=== PATIENT | male | born 1970 | race Caucasian/White ===

== ENCOUNTER 2023-02-18 16:26 | Emergency (ER) | payer OTHER, SELFPAY ==
[2023-02-18 16:27] VITALS: BP 82/56; PULSE 78; RESP 16; TEMP 36.7; O2SAT 97; BMI 22.9
--- NOTE | 2023-02-18 16:36 | ECG_ITS ---
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
[2023-02-18 16:48] VITALS: BP 93/56; PULSE 80; RESP 20; O2SAT 97
[2023-02-18 16:51] LABS: Basophils Absolute Auto 0.1 10^3/uL (0.0-0.1); Basophils Percent Auto 0.4 % (0.2-2.0); Eosinophils Absolute Auto 0.2 10^3/uL (0.0-0.7); Eosinophils Percent Auto 1.3 % (0.9-7.0); Hematocrit 33.2 % (42.0-54.0); Hemoglobin 10.7 g/dL (14.0-18.0); Immature Granulocytes Abs Auto 0.05 10^3/uL (0.00-0.03); Immature Granulocytes Pct Auto 0.4 % (0.0-0.5); Lymphocytes Absolute Auto 2.6 10^3/uL (1.2-3.8); Lymphocytes Percent Auto 20.7 % (20.5-60.0); Mean Corpuscular HGB Conc 32.2 g/dL (29.9-35.2); Mean Corpuscular Volume 86.9 fL (80.0-94.0); Mean Platelet Volume 9.6 fL (9.5-13.5); Monocytes Absolute Auto 0.9 10^3/uL (0.3-0.8); Monocytes Percent Auto 6.9 % (1.7-12.0); Neutrophils Absolute Auto 8.7 10^3/uL (1.4-6.5); Neutrophils Percent Auto 70.3 % (43.0-75.0); Platelet Count 409 10^3/uL (150-450); Red Blood Count 3.82 10^6/uL (4.70-6.10); Red Cell Distribution Width 13.7 % (11.0-15.0); White Blood Count 12.4 10^3/uL (4.0-11.0)
[2023-02-18] MEDS: KETOROLAC TROMETHAMINE 30 MG/ML VIAL IVP (16:57)
[2023-02-18] MEDS: 0.9 % SODIUM CHLORIDE 1,000 ML 1000 ML IV (16:58)
[2023-02-18 17:07] LABS: Alanine Aminotransferase 18 U/L (16-63); Albumin Globulin Ratio 0.8; Albumin Level 3.4 g/dL (3.4-5.0); Alkaline Phosphatase 111 U/L (46-116); Anion Gap 14.3; Aspartate Amino Transferase 15 U/L (15-37); BUN Creatinine Ratio 17.6; Bilirubin Total 0.3 mg/dL (0.2-1.0); Calcium 9.2 mg/dL (8.5-10.1); Carbon Dioxide 27.4 mmol/L (21.0-32.0); Chloride 98 mmol/L (98-107); Estimated GFR (African America 45 (>=60); Estimated GFR (Non-African Ame 37 (>=60); Globulin 4.2 g/dL; Glucose 78 mg/dL (74-106); Potassium 4.7 mmol/L (3.5-5.1); Sodium 135 mmol/L (136-145); Total Protein 7.6 g/dL (6.4-8.2); Troponin I High Sensitivity 6.8 pg/mL (4.0-76.1)
[2023-02-18 17:29] VITALS: BP 90/60
--- NOTE | 2023-02-18 17:38 | ED.GENADUL1 ---
HPI - General Adult General Chief complaint: Weakness Stated complaint: HYPOTENSION Time Seen by Provider: 02/18/23 16:34 History of Present Illness HPI narrative: 52 year old male presented by kylee with a chief complaint of weakness. Patient is in a rehab facility at this time for a back fracture. Facility placed a fentanyl patch on him earlier today and his pressures dropped and patient became weak. Patient was brought here by squad. He is alert and oriented upon arrival. The fentanyl patch and then removed prior to arrival.I will patient's blood pressure was 82/56. Patient any chest pain or shortness of breath. He is wearing a back brace. Related Data Home Medications Medication Instructions Recorded Confirmed aspirin 81 mg tablet,delayed 81 mg PO DAILY 02/18/23 02/18/23 release atorvastatin 20 mg tablet 20 mg PO DAILY 02/18/23 02/18/23 colestipol 1 gram tablet 1 g PO TID 02/18/23 02/18/23 dapagliflozin propanediol 5 mg 5 mg PO QAM 02/18/23 02/18/23 tablet (Farxiga) docusate sodium 100 mg capsule 200 mg PO BID PRN constipation 02/18/23 02/18/23 (Colace) duloxetine 30 mg capsule,delayed 30 mg PO QPM 02/18/23 02/18/23 release fentanyl 12 mcg/hr transdermal 1 patch transdermal Q72H 02/18/23 02/18/23 patch gabapentin 600 mg tablet 600 mg PO TID 02/18/23 02/18/23 insulin aspart U-100 100 unit/mL 1 sliding scale dose subcut QID 02/18/23 02/18/23 (3 mL) subcutaneous pen insulin glargine 100 unit/mL (3 15 unit subcut QPM 02/18/23 02/18/23 mL) subcutaneous pen (Lantus Solostar U-100 Insulin) insulin glargine 100 unit/mL 20 unit subcut QAM 02/18/23 02/18/23 subcutaneous solution (Lantus U-100 Insulin) [id number]-[id number] 2 cap PO TID 02/18/23 02/18/23 36,000-114,000-180,000 unit capsule,delay rel (Creon) metformin 500 mg tablet,extended 500 mg PO QAM 02/18/23 02/18/23 release 24 hr metoprolol succinate 25 mg 25 mg PO QAM 02/18/23 02/18/23 tablet,extended release 24 hr oxcarbazepine 300 mg tablet 300 mg PO TID 02/18/23 02/18/23 oxycodone 5 mg tablet 5 mg PO Q6H PRN pain 02/18/23 02/18/23 pantoprazole 40 mg tablet,delayed 40 mg PO QAM 02/18/23 02/18/23 release tamsulosin 0.4 mg capsule 0.4 mg PO BID 02/18/23 02/18/23 tizanidine 4 mg tablet 4 mg PO QAM 02/18/23 02/18/23 valsartan 80 mg tablet 40 mg PO QAM 02/18/23 02/18/23 Allergies Allergy/AdvReac Type Severity Reaction Status Date / Time naloxone [From Narcan] Allergy Severe Verified 02/18/23 16:27 Penicillins Allergy Severe Verified 02/18/23 16:27 Review of Systems ROS Narrative All Systems are negative except as noted/marked.All systems reviewed and otherwise negative [facility] Medical History (Updated 02/18/23 @ 18:08 by Ana Jackson) Anemia ?D64.9 - Anemia, unspecified (ICD-10) Anxiety ?F41.9 - Anxiety disorder, unspecified (ICD-10) Arthritis ?M19.90 - Unspecified osteoarthritis, unspecified site (ICD-10) Back fracture Coronary artery disease ?I25.10 - Atherosclerotic heart disease of [place] coronary artery without angina pectoris (ICD-10) Depression ?F32.A - Depression, unspecified (ICD-10) Diabetes ?E11.9 - Type 2 diabetes mellitus without complications (ICD-10) Exocrine pancreatic insufficiency ?K86.81 - Exocrine pancreatic insufficiency (ICD-10) GERD (gastroesophageal reflux disease) ?K21.9 - Gastro-esophageal reflux disease without esophagitis (ICD-10) High cholesterol ?E78.00 - Pure hypercholesterolemia, unspecified (ICD-10) Hypertension ?I10 - Essential (primary) hypertension (ICD-10) IBS (irritable bowel syndrome) ?K58.9 - Irritable bowel syndrome without diarrhea (ICD-10) Kidney disease ?N28.9 - Disorder of kidney and ureter, unspecified (ICD-10) Polyneuropathy ?G62.9 - Polyneuropathy, unspecified (ICD-10) Retinopathy ?H35.00 - Unspecified background retinopathy (ICD-10) Seizure disorder ?G40.909 - Epilepsy, unspecified, not intractable, without status epilepticus (ICD-10) Exam Narrative Exam Narrative: Nurses note and vital signs reviewed and patient is not hypoxic. General: The patient appears well and in no apparent distress. Patient is resting comfortably on cart. Skin: Warm, dry, no pallor noted. There is no rash noted. Head: Normocephalic, atraumatic Eye: Normal conjunctiva, no drainage, EOMI. PERRL Cardiovascular: Regular Rate and Rhythm Respiratory: Patient is in no distress, no accessory muscle use, lungs are clear to auscultation, no wheezing, rales or rhonchi Back: chronic Back pain tenderness, wearing brace, known fracture GI: Normal bowel sounds, no tenderness to palpation, no masses appreciated. No rebound, guarding, or rigidity noted. Musculoskeletal: Moves all extremities well Neurological: A&O x4, normal speech Psychiatric: Cooperative Constitutional Vital Signs, click to edit/add: Last Vital Signs Temp 98.0 F 02/18/23 16:27 Pulse 72 02/18/23 18:48 Resp 20 02/18/23 18:48 BP 107/76 02/18/23 18:48 Pulse Ox 98 02/18/23 18:48 O2 Del Method Room Air 02/18/23 18:48 Course Vital Signs Vital signs: Vital Signs Temperature 98.0 F 02/18/23 16:27 Pulse Rate 78 02/18/23 16:27 Respiratory Rate 16 02/18/23 16:27 Blood Pressure 82/56 L 02/18/23 16:27 Pulse Oximetry 97 02/18/23 16:27 Oxygen Delivery Method Room Air 02/18/23 16:27 Temperature 98.0 F 02/18/23 16:27 Pulse Rate 72 02/18/23 18:48 Respiratory Rate 20 02/18/23 18:48 Blood Pressure 107/76 02/18/23 18:48 Pulse Oximetry 98 02/18/23 18:48 Oxygen Delivery Method Room Air 02/18/23 18:48 Medical Decision Making Differential Diagnosis Differential Diagnosis: hypotension, dehydration Medical Records Medical records reviewed: Yes I reviewed the patient's medical records Medical records narrative: Patient presented here with chief complaint weakness and hypotension. He received a liter of IV fluids. Pressure is improved and 115/64. Patient's CBC BMP were reviewed. Patient has elevated BUN/creatinine siblings consistent with dehydration. Patient feels well is eating and drinking well. Patient will be discharged back to the rehab facility. We are arranging transportation and she has no family to take him home. patient agrees with plan of care. Lab Data Lab results reviewed: Yes I reviewed the patient's lab results Labs: Lab Results 02/18/23 Range/Units 16:43 WBC 12.4 H (4.0-11.0) 10^3/uL RBC 3.82 L (4.70-6.10) 10^6/uL Hgb 10.7 L (14.0-18.0) g/dL Hct 33.2 L (42.0-54.0) % MCV 86.9 (80.0-94.0) fL MCH 28.0 (25.9-34.0) pg MCHC 32.2 (29.9-35.2) g/dL RDW 13.7 (11.0-15.0) % Plt Count 409 (150-450) 10^3/uL MPV 9.6 (9.5-13.5) fL Neut % (Auto) 70.3 (43.0-75.0) % Lymph % (Auto) 20.7 (20.5-60.0) % [place] % (Auto) 6.9 (1.7-12.0) % Eos % (Auto) 1.3 (0.9-7.0) % Baso % (Auto) 0.4 (0.2-2.0) % Neut # (Auto) 8.7 H (1.4-6.5) 10^3/uL Lymph # (Auto) 2.6 (1.2-3.8) 10^3/uL [place] # (Auto) 0.9 H (0.3-0.8) 10^3/uL Eos # (Auto) 0.2 (0.0-0.7) 10^3/uL Baso # (Auto) 0.1 (0.0-0.1) 10^3/uL Abs Immat Gran (auto) 0.05 H (0.00-0.03) 10^3/uL Imm/Tot Granulo (auto) 0.4 (0.0-0.5) % Sodium 135 L (136-145) mmol/L Potassium 4.7 (3.5-5.1) mmol/L Chloride 98 (98-107) mmol/L Carbon Dioxide 27.4 (21.0-32.0) mmol/L Anion Gap 14.3 BUN 34.0 H (7.0-18.0) mg/dL Creatinine 1.93 H (0.70-1.30) mg/dL Est GFR ( Amer) 45 L (>=60) Est GFR (Non-Af Amer) 37 L (>=60) BUN/Creatinine Ratio 17.6 Glucose 78 (74-106) mg/dL Calcium 9.2 (8.5-10.1) mg/dL Total Bilirubin 0.3 (0.2-1.0) mg/dL AST 15 (15-37) U/L ALT 18 (16-63) U/L Alkaline Phosphatase 111 (46-116) U/L Troponin I High Sens 6.8 (4.0-76.1) pg/mL Total Protein 7.6 (6.4-8.2) g/dL Albumin 3.4 (3.4-5.0) g/dL Globulin 4.2 g/dL Albumin/Globulin Ratio 0.8 ECG Data Attestation: ?I have reviewed the pertinent ECG results. Interpretation: 1646 EKG sinus rhythm with a rate of 79 bpm, no ectopy no ST elevation or depression, no STEMI Discharge Plan Discharge Chief Complaint: Weakness Clinical Impression: Hypotension, Dehydration Patient Disposition: Home, Self-Care Time of Disposition Decision: 18:07 Condition: Good Mode of Transportation: EMS Prescriptions / Home Meds: No Action aspirin 81 mg tablet,delayed release (DR/EC) 81 mg PO DAILY atorvastatin 20 mg tablet 20 mg PO DAILY colestipol 1 gram tablet 1 g PO TID duloxetine 30 mg capsule,delayed release(DR/EC) 30 mg PO QPM Farxiga 5 mg tablet 5 mg PO QAM Creon 36,000-114,000- 180,000 unit capsule,delayed release(DR/EC) 2 cap PO TID Patient Comments: before meals insulin glargine [Lantus Solostar U-100 Insulin] 100 unit/mL (3 mL) insulin pen 15 unit SUBCUT QPM insulin glargine [Lantus U-100 Insulin] 100 unit/mL solution 20 unit subcut QAM metformin 500 mg tablet extended release 24 hr 500 mg PO QAM insulin aspart U-100 100 unit/mL (3 mL) insulin pen 1 sliding scale dose SUBCUT QID Patient Comments: before meals and bedtime metoprolol succinate 25 mg tablet extended release 24 hr 25 mg PO QAM pantoprazole 40 mg tablet,delayed release (DR/EC) 40 mg PO QAM tamsulosin 0.4 mg capsule 0.4 mg PO BID valsartan 80 mg tablet 40 mg PO QAM tizanidine 4 mg tablet 4 mg PO QAM oxcarbazepine 300 mg tablet 300 mg PO TID gabapentin 600 mg tablet 600 mg PO TID oxycodone 5 mg tablet 5 mg PO Q6H PRN (Reason: pain) docusate sodium [Colace] 100 mg capsule 200 mg PO BID PRN (Reason: constipation) fentanyl 12 mcg/hr patch 72 hour 1 patch transdermal Q72H Instructions: Dehydration (ED), Hypotension (ED) Stand Alone Forms: Portal Instructions Referrals: Physician,Non-Staff, MD [Primary Care Provider] - 1 week Discharge Date/Time: 02/18/23 20:01
[2023-02-18 18:00] VITALS: BP 115/64; PULSE 88; RESP 16; O2SAT 100
--- NOTE | 2023-02-18 18:45 | PC.NURSE ---
Report called to nurse Santoro at [facility], she is aware of ETA for transport back to facility is 715 PM.
[2023-02-18 18:48] VITALS: BP 107/76; PULSE 72; RESP 20; O2SAT 98
== END 2023-02-18 20:01 | disposition home or self-care (01) ==
PROVIDERS: Physician Assistant; Emergency Provider Emergency Medicine
DX: E86.0 Dehydration (principal); I95.9 Hypotension, unspecified; F41.9 Anxiety disorder, unspecified; M19.90 Unspecified osteoarthritis, unspecified site; I25.10 Atherosclerotic heart disease of native coronary artery without angina pectoris; F32.A Depression, unspecified; E11.9 Type 2 diabetes mellitus without complications; K21.9 Gastro-esophageal reflux disease without esophagitis; K86.81 Exocrine pancreatic insufficiency; E78.00 Pure hypercholesterolemia, unspecified; I10 Essential (primary) hypertension; K58.9 Irritable bowel syndrome, unspecified; N28.9 Disorder of kidney and ureter, unspecified; G62.9 Polyneuropathy, unspecified; G40.909 Epilepsy, unspecified, not intractable, without status epilepticus; H35.00 Unspecified background retinopathy; Z79.82 Long term (current) use of aspirin; Z79.899 Other long term (current) drug therapy; Z79.4 Long term (current) use of insulin; Z79.84 Long term (current) use of oral hypoglycemic drugs
CPT/HCPCS: 36415; 80053; 84484; 85025; 93005; 96361; 96374; 99285